=== PATIENT | female | born 1930 | race Caucasian/White ===

== ENCOUNTER 2017-10-13 08:00 | Emergency (ER) | END 2017-10-13 11:42 | disposition left against medical advice (07) ==

== ENCOUNTER 2019-02-16 10:19 | Emergency (ER) | payer MEDICARE, OTHER ==
[~2019-02-16] VITALS: Ht 162.6 cm; Wt 80.0 kg
[~2019-02-16 10:19] MED LIST: ALEN70TA5 PO; ASPI81TA52 PO; ATOR40TA68 PO; CLOP75TA27 PO; DONE10TA7 PO; ERGO500014 PO; FENO145T37 PO; ISOS30TA67 PO; LORA-441 PO; METF100010 PO; METO-448 PO; NAPR-685 PO; PANT40TA4 PO; PIOG30TA12 PO
[2019-02-16 10:35] VITALS: Ht 162.6 cm; Wt 80.0 kg
[2019-02-16] MEDS ORDERED: ERGO500013 PO (12:30)
[2019-02-16] MEDS ORDERED: ASPI-817 PO (12:31)
[2019-02-16] MEDS ORDERED: LORA0.5T PO (12:31)
[2019-02-16] MEDS ORDERED: DONE10TA7 PO (12:32)
[2019-02-16] MEDS ORDERED: ISOS30TA67 PO (12:32)
[2019-02-16] MEDS ORDERED: ATOR40TA68 PO (12:32)
[2019-02-16] MEDS ORDERED: METF100010 PO (12:33)
[2019-02-16] MEDS ORDERED: CLOP75TA19 PO (12:33)
[2019-02-16] MEDS ORDERED: PIOG30TA71 PO (12:33)
[2019-02-16] MEDS ORDERED: FENO145T37 PO (12:34)
[2019-02-16] MEDS ORDERED: METO-448 PO (12:34)
--- NOTE | 2019-02-16 13:51 | ERD ---
ER Documentation Chief Complaint Chief Complaint biba, sob started few hours ago, pain L arm r/o fall 2 days ago HPI 88-year-old female brought in by ambulance from home with complaints of shortness of breath. Patient is only Cymra[place] speaking. She does have a history of dementia. She is stating that she was having some shortness of breath at home. Per her family, she does have known CAD that is untreated only medically treated and always complains of shortness of breath. However they are more concerned about the fall 2 days ago that caused her to have severe left- sided arm bruising. She is complaining of pain in the arm, worse with movement, unable to rate the pain. Denies any head injury. No other pain ROS All systems reviewed and are negative except as per history of present illness. Medications Home Meds Reported Medications Fenofibrate Nanocrystallized* (Fenofibrate*) 145 Mg Tablet, 145 MG PO DAILY, TAB 02/16/19 Metoprolol Tartrate* (Lopressor*) 25 Mg Tab, 25 MG PO BID, #60 TAB 02/16/19 Pioglitazone Hcl* (Pioglitazone Hcl*) 30 Mg Tablet, 30 MG PO DAILY, TAB 02/16/19 Metformin Hcl* (Metformin Hcl*) 1,000 Mg Tablet, 1000 MG PO WITH BREAKFAST DINNE, #60 TAB 02/16/19 Clopidogrel Bisulfate* (Clopidogrel Bisulfate*) 75 Mg Tablet, 75 MG PO DAILY, #30 TAB 02/16/19 Atorvastatin* (Atorvastatin*) 40 Mg Tablet, 40 MG PO QHS, #30 TAB 02/16/19 Donepezil* (Aricept*) 10 Mg Tablet, 10 MG PO DAILY, TAB 02/16/19 Isosorbide Mononitrate* (Isosorbide Mononitrate*) 30 Mg Tab.er.24h, 30 MG PO DAILY, TAB 02/16/19 Aspirin* (Aspirin* EC) 81 Mg Tablet.dr, 81 MG PO DAILY, TAB 02/16/19 Lorazepam* (Lorazepam*) 0.5 Mg Tablet, 0.5 MG PO HS PRN for ANXIETY, TAB 02/16/19 Ergocalciferol (Vitamin D2) (VITAMIN D2) 50,000 Unit Capsule, 70720 UNIT PO Q7D, CAP 02/16/19 Discontinued Reported Medications Metformin Hcl* (Metformin Hcl*) 1,000 Mg Tablet, 1000 MG PO WITH BREAKFAST DINNE, #30 TAB 07/22/16 Ergocalciferol* (Drisdol* (Vitamin D2)) 50,000 Unit Capsule, 73032 UNIT PO Q7D, CAP 07/22/16 Atorvastatin* (Atorvastatin*) 40 Mg Tablet, 40 MG PO QHS, #30 TAB 07/22/16 Fenofibrate Nanocrystallized* (Fenofibrate*) 145 Mg Tablet, 145 MG PO DAILY, TAB 07/22/16 Clopidogrel Bisulfate (Clopidogrel) 75 Mg Tablet, 75 MG PO DAILY, #30 TAB 07/22/16 Aspirin (Low Dose Aspirin) 81 Mg Tablet.dr, 81 MG PO DAILY, #30 TAB 07/22/16 Lorazepam* (Ativan*) 0.5 Mg Tablet, 0.5 MG PO HS PRN for SLEEP, #30 TAB 07/22/16 Donepezil* (Donepezil*) 10 Mg Tablet, 10 MG PO DAILY, #30 TAB 07/22/16 Pioglitazone Hcl* (Actos*) 30 Mg Tablet, 30 MG PO DAILY, #30 TAB 07/22/16 Alendronate Sodium* (Fosamax*) 70 Mg Tablet, 70 MG PO Q7D, #4 TAB 07/22/16 Naproxen* (Naproxen*) 375 Mg Tablet, 375 MG PO BID PRN for PAIN, TAB 07/22/16 Discontinued Scripts Metoprolol Tartrate* (Lopressor*) 25 Mg Tab, 25 MG PO BID for 30 Days, TAB 2 Refills Prov:REYNALDO WILCOX MD 07/25/16 Pantoprazole* (Pantoprazole*) 40 Mg Tablet.dr, 40 MG PO DAILY@06 for 30 Days Prov:REYNALDO WICLOX MD 07/25/16 Isosorbide Mononitrate* (Isosorbide Mononitrate*) 30 Mg Tab.er.24h, 30 MG PO DAILY for 30 Days, 2 Refills Prov:REYNALDO WILCOX MD 07/25/16 Allergies Allergies: Coded Allergies: No Known Drug Allergy (Verified Allergy, Unknown, 02/16/19) PMhx/Soc History of Surgery: Yes (CABG) Anesthesia Reaction: No Hx Neurological Disorder: No Hx Respiratory Disorders: No Hx Cardiac Disorders: Yes (HTN) Hx Psychiatric Problems: Yes (ANXIETY, DEMENTIA) Hx Miscellaneous Medical Probl: Yes (CAD, Dyslipidemia, HTN, Dementia, OP) Hx Alcohol Use: No Hx Substance Use: No Hx Tobacco Use: No FmHx Unable to obtain Physical Exam Vitals Vital Signs Date Temp Pulse Resp B/P (MAP) Pulse Ox O2 O2 Flow FiO2 Time Delivery Rate 02/16/19 Nasal 2 10:51 Cannula 02/16/19 98.0 99 20 155/89 97 10:35 (111) Physical Exam Const: No acute distress Head: Atraumatic Eyes: Normal Conjunctiva ENT: Normal External Ears, Nose and Mouth. Neck: Full range of motion. No meningismus. Resp: Clear to auscultation bilaterally Cardio: Regular rate and rhythm, no murmurs Abd: Soft, non tender, non distended. Normal bowel sounds Skin: No petechiae or rashes Back: No midline or flank tenderness Ext: No cyanosis, or edema. Left upper extremity with extensive bruising from the mid humerus down to the elbow. No joint swelling noted. Limited range of motion secondary to pain at the left shoulder. Able to extend left arm at the elbow. No evidence of hand or lower arm injury. All other extremities are atraumatic, normal to inspection and palpation. 2+ distal pulses in all 4 extremities. Neur: Awake and alert, normal speech, able to move all extremities spontaneou sly. Psych: Normal Mood and Affect Result Diagram: 02/16/19 1046 02/16/19 1046 Results 24 hrs Laboratory Tests Test 02/16/19 10:46 White Blood Count 11.0 10^3/ul Red Blood Count 3.78 10^6/ul Hemoglobin 10.6 g/dl Hematocrit 32.6 % Mean Corpuscular Volume 86.2 fl Mean Corpuscular Hemoglobin 28.0 pg Mean Corpuscular Hemoglobin Concent 32.5 g/dl Red Cell Distribution Width 13.2 % Platelet Count 215 10^3/UL Mean Platelet Volume 10.3 fl Immature Granulocytes % 0.500 % Neutrophils % 79.2 % Lymphocytes % 10.4 % Monocytes % 9.6 % Eosinophils % 0.0 % Basophils % 0.3 % Nucleated Red Blood Cells % 0.0 /100WBC Immature Granulocytes # 0.060 10^3/ul Neutrophils # 8.7 10^3/ul Lymphocytes # 1.1 10^3/ul Monocytes # 1.1 10^3/ul Eosinophils # 0.0 10^3/ul Basophils # 0.0 10^3/ul Nucleated Red Blood Cells # 0.0 10^3/ul Prothrombin Time 14.4 Sec Prothrombin Time Ratio 1.1 INR International Normalized Ratio 1.11 Activated Partial Thromboplast Time 26.9 Sec Sodium Level 135 mmol/L Potassium Level 3.7 mmol/L Chloride Level 100 mmol/L Carbon Dioxide Level 23 mmol/L Anion Gap 12 Blood Urea Nitrogen 22 mg/dl Creatinine 1.06 mg/dl Est Glomerular Filtrat Rate mL/min mL/min Glucose Level 352 mg/dl Calcium Level 9.0 mg/dl Troponin I 0.023 ng/ml Procedures/MDM EMERGENT LABS AND DIAGNOSTIC STUDIES: Lab Results above were reviewed and interpreted by me. CBC: Mild anemia BMP: Mild elevation of BUN and creatinine, chronic for patient. Hyperglycemic without acidosis. No evidence of clinically significant electrolyte abnormality, acidosis, renal failure Troponin within normal limits, not indicative of cardiac ischemia 12-lead EKG was interpreted by Nick Herbert MD: Normal Sinus Rhythm with ventricular rate of 95 beats per minute Normal axis LVH No acute ST or T wave changes suggestive of acute ischemia or STEMI. Radiology Results as interpreted by Radiology below were reviewed by Santos Herbert MD: Chest x-ray shows evidence of atelectasis, no other acute abnormalities X-ray left humerus shows humeral neck fracture, mildly displaced X-ray left elbow shows no acute abnormalities other than soft tissue swelling Initial Nursing notes reviewed. Previous Medical Records requested via the Electronic Health Record. EMERGENCY DEPARTMENT COURSE / MEDICAL DECISION MAKING: Patient is presenting with complaints of shortness of breath that seems to be chronic for the patient. Vitals are unremarkable. Left upper extremity x-ray showed fracture of the humeral neck for which shoulder immobilizer was placed. Labs did not show any significant abnormalities. No evidence of ACS at this time. I explained to family that I cannot be sure that she does not have any other acute cardiac or pulmonary pathology. There they understand and would like to take the patient home and will bring her back for any worsening symptoms. Follow-up with PCP was recommended for tomorrow to get a referral to an orthopedist. Return precautions given Patient's blood pressure was elevated (>120/80) but appears stable without evidence of hypertensive emergency or urgency. The patient was counseled about the risks of hypertension and urged to pursue outpatient monitoring and therapy within a week with their primary care physician. Departure Diagnosis: Primary Impression: Shortness of breath Additional Impression: Closed fracture of neck of left humerus Encounter type: initial encounter Qualified Codes: S42.212A - Unspecified displaced fracture of surgical neck of left humerus, initial encounter for closed fracture Condition: Stable Patient Instructions: Coping with Shortness of Breath: Controlling Stress, Fracture, Shoulder Additional Instructions: Make an appointment with her primary care doctor within the next 2 days to get a referral to an orthopedist for her shoulder fracture. DOMINGUEZ HERBERT MD Feb 16, 2019 13:51
[2019-02-16 14:19] VITALS: BP 157/99; PULSE 80; RESP 20
== END 2019-02-16 14:20 | disposition home or self-care (01) ==
LOC: E/R 10:19
DX: S42.295A Other nondisplaced fracture of upper end of left humerus, initial encounter for closed fracture (principal); R06.02 Shortness of breath; I10 Essential (primary) hypertension; I25.10 Atherosclerotic heart disease of native coronary artery without angina pectoris; W18.39XA Other fall on same level, initial encounter; Y92.9 Unspecified place or not applicable; Z79.82 Long term (current) use of aspirin; Z79.84 Long term (current) use of oral hypoglycemic drugs
CPT/HCPCS: 36415; 71045; 73060; 80048; 84484; 85025; 85610; 85730; 93005